=== PATIENT | female | born 1980 | race Caucasian/White ===

== ENCOUNTER 2018-09-10 01:39 | Inpatient (IN) | payer OTHER ==
[2018-09-10] MEDS ORDERED: LACTATED RINGER'S 1,000 ML IV (02:04)
[2018-09-10] MEDS ORDERED: LIDOCAINE 0.5% (SDV) 50 ML INJ (02:15)
[2018-09-10 02:23] LABS: ADD MAN DIFF? NO; BASOPHILS % 0.3 % (0.0-2.0); EOSINOPHILS # 0.1 10^3/ul (0.0-0.5); HEMATOCRIT 35.9 % (37.0-47.0); HEMOGLOBIN 12.1 g/dl (12.0-16.0); LYMPHOCYTES # 1.9 10^3/ul (0.8-2.9); LYMPHOCYTES % 27.3 % (15.0-51.0); MEAN CORPUSCULAR HEMOGLOBIN 31.7 pg (29.0-33.0); MEAN CORPUSCULAR HGB CONC 33.7 g/dl (32.0-37.0); MEAN PLATELET VOLUME 10.5 fl (7.4-10.4); MONOCYTE # 0.5 10^3/ul (0.3-0.9); MONOCYTES % 6.4 % (0.0-11.0); NEUTROPHIL # 4.5 10^3/ul (1.6-7.5); NEUTROPHILS % 64.4 % (39.0-77.0); PLATELET COUNT 141 10^3/UL (140-415); RED BLOOD COUNT 3.82 10^6/ul (4.20-5.40); RED CELL DISTRIBUTION WIDTH 13.9 % (11.5-14.5)
[2018-09-10] MEDS ORDERED: MISOPROSTOL 200 MCG TAB PR ×2 (02:30→05:00)
[2018-09-10] MEDS ORDERED: BUTORPHANOL 2 MG INJ IV (02:30)
[2018-09-10] MEDS ORDERED: CARBOPROST 250 MCG INJ IM ×2 (02:30→05:00)
[2018-09-10] MEDS ORDERED: METHYLERGONOVINE 0.2 MG INJ IM ×2 (02:30→05:00)
[2018-09-10] MEDS ORDERED: OXYTOCIN 30 UNITS/LR 500 ML IV ×2 (02:30→05:00)
[2018-09-10] MEDS: LACTATED RINGER'S 1,000 ML IV* (02:30)
[2018-09-10] MEDS ORDERED: IBUPROFEN 600 MG TAB PO (02:30)
[2018-09-10 02:37] LABS: INR 0.79; PT RATIO 0.9
[2018-09-10 02:38] LABS: PARTIAL THROMBOPLASTIN TIME 27.2 Sec (23.0-35.0)
[2018-09-10] MEDS: OXYTOCIN 30 UNITS/LR 500 ML IV ×2 (02:39→02:41)
[2018-09-10] MEDS: LIDOCAINE 0.5% (SDV) 50 ML INJ INFIL (02:51)
[2018-09-10] MEDS: MINERAL OIL LIGHT 10 ML VIAL TOP (02:52)
[2018-09-10 03:32] LABS: HEPATITIS B SURFACE ANTIGEN NEGATIVE (NEGATIVE)
[2018-09-10] MEDS: WITCH HAZEL/GLYCERIN PAD PR (04:58)
[2018-09-10] MEDS: BENZOCAINE 20% 56 ML SPRAY TOP (04:59)
[2018-09-10] MEDS ORDERED: OXYCODONE/ASPIRIN (4.88/325) TAB PO (05:00)
[2018-09-10] MEDS ORDERED: ZOLPIDEM 5 MG TAB PO (05:00)
[2018-09-10] MEDS: IBUPROFEN 600 MG TAB PO ×4 (05:55→23:59)
[2018-09-10] MEDS: LANOLIN 7 GM TUBE TOP (05:55)
[2018-09-10] MEDS: SENNA/DOCUSATE NA (8.6MG/50MG) TAB PO ×2 (09:55→21:09)
[2018-09-10 16:23] LABS: RAPID PLASMA REAGIN NONREACTIVE (NR)
[2018-09-11] MEDS: IBUPROFEN 600 MG TAB PO ×4 (05:43→23:34)
[2018-09-11 07:49] LABS: ADD MAN DIFF? NO
[2018-09-11 07:51] LABS: WHITE BLOOD COUNT 8.7 10^3/ul (4.8-10.8)
[2018-09-11 07:52] LABS: BASOPHILS % 0.1 % (0.0-2.0); EOSINOPHILS # 0.1 10^3/ul (0.0-0.5); EOSINOPHILS % 0.9 % (0.0-7.0); HEMATOCRIT 27.9 % (37.0-47.0); HEMOGLOBIN 9.1 g/dl (12.0-16.0); LYMPHOCYTES # 1.8 10^3/ul (0.8-2.9); LYMPHOCYTES % 20.9 % (15.0-51.0); MEAN CORPUSCULAR HEMOGLOBIN 31.8 pg (29.0-33.0); MEAN CORPUSCULAR HGB CONC 32.6 g/dl (32.0-37.0); MEAN CORPUSCULAR VOLUME 97.6 fl (82.0-101.0); MEAN PLATELET VOLUME 10.7 fl (7.4-10.4); MONOCYTE # 0.5 10^3/ul (0.3-0.9); MONOCYTES % 5.9 % (0.0-11.0); NEUTROPHIL # 6.2 10^3/ul (1.6-7.5); NEUTROPHILS % 71.3 % (39.0-77.0); PLATELET COUNT 136 10^3/UL (140-415); RED BLOOD COUNT 2.86 10^6/ul (4.20-5.40); RED CELL DISTRIBUTION WIDTH 14.2 % (11.5-14.5)
[2018-09-11] MEDS: SENNA/DOCUSATE NA (8.6MG/50MG) TAB PO ×2 (09:18→21:33)
[2018-09-12] MEDS: IBUPROFEN 600 MG TAB PO ×2 (05:54→11:34)
[2018-09-12] MEDS: SENNA/DOCUSATE NA (8.6MG/50MG) TAB PO (08:29)
[2018-09-12] MEDS: OXYCODONE/ASPIRIN (4.88/325) TAB PO (08:29)
[2018-09-12] MEDS: WITCH HAZEL/GLYCERIN PAD PR (08:29)
[2018-09-12] MEDS: DIPHTH/TET/ACEL PERTUSS (ADULT) 0.5 ML VIAL IM* (09:00)
== END 2018-09-12 12:50 | disposition home or self-care (01) | DRG 807 ==
LOC: OBT 01:39 → L-D 01:41 → OBT 01:55 → L-D 01:55 → PP1 05:01
PROVIDERS: Obstetrics & Gynecology
PROC: 10E0XZZ Delivery of Products of Conception, External Approach (ICD-10-PCS; principal; 2018-09-10)
PROC: 0W8NXZZ Division of Female Perineum, External Approach (ICD-10-PCS; 2018-09-10)
DX: O36.63X0 Maternal care for excessive fetal growth, third trimester, not applicable or unspecified (principal); Z37.0 Single live birth; Z3A.40 40 weeks gestation of pregnancy
CPT/HCPCS: 85025; 85610; 85730; 86592; 86850; 86900; 86901; 87340; 90715; 99464